=== PATIENT | female | born 1980 | race Caucasian/White ===

== ENCOUNTER 2018-06-25 07:19 | Day surgery (SDC) | payer BC ==
[~2018-06-25 07:19] MED LIST: Dexamethasone 4 MG/ML 5 ML MDV ONE; Lactated Ringers 1,000 ML IV SCH; Lidocaine 0.5% 50 ML SDV ONE; Lidocaine 1%/Sod Bicarbonate in NS 8.4% 1 ML Syringe IDERM PRN; Midazolam 1 MG/ML 2 ML SDV ONE; Ondansetron 4 MG/2 ML SDV ONE; Propofol 200 MG/20 ML SDV ONE; Sodium Bicarbonate 8.4% 50 MEQ/50 ML SDV ONE; Sodium Chloride 0.9% 10 ML Syringe FLUSH PRN; fentaNYL 100 MCG/2 ML SDV ONE
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
[2018-06-25] MEDS ORDERED: Bupivacaine 0.25%/EPINEPHrine 1:200,000 30 ML SDV ONE (08:49)
[2018-06-25] MEDS ORDERED: Bupivacaine 0.25% 10 ML SDV ONE (08:49)
[2018-06-25] MEDS ORDERED: Clindamycin Phosphate 900 MG/6 ML SDV ONE (09:00)
[2018-06-25] MEDS ORDERED: Sodium Chloride 0.9% 100 ML ONE (09:12)
--- NOTE | 2018-06-25 09:22 | PCM48HPAN ---
Post Anesthesia Note - EVALUATION WITHIN 48HRS OF ANESTHETIC Vital Signs in Normal Range: Yes Patient Participated in Evaluation: Yes Respiratory Function Stable: Yes Airway Patent: Yes Cardiovascular Function Stable: Yes Hydration Status Stable: Yes Pain Control Satisfactory: Yes Nausea and Vomiting Control Satisfactory: Yes Mental Status Recovered: Yes Pulse Rate: 63 SaO2: 95 Resp Rate: 17 Temperature: 36.6 C Blood Pressure: 121/67
--- NOTE | 2018-07-07 17:32 | OR ---
DATE OF OPERATION: 06/25/2018 SURGEON: Devyn Hayes MD PREOPERATIVE DIAGNOSIS: Status post open reduction and internal fixation of intraarticular left index finger bony mallet. POSTOPERATIVE DIAGNOSIS: Status post open reduction and internal fixation of intraarticular left index finger bony mallet. OPERATION PERFORMED: Removal of superficial buried pin x1, [id number]. IC DESIGN MANAGER: nursing assistant: Wendy Troy. INDICATIONS: This is a pleasant female who presents with status post open reduction and internal fixation of bony mallet. After discussing the risks, benefits, and alternatives as well as conservative as well as surgical treatment, the patient verbalized understanding and wished to proceed with surgery. DESCRIPTION OF PROCEDURE: The patient was brought to the operating room. Underwent a [place] blockade. Left upper extremity was prepped and draped in a standard orthopedic fashion. Surgical pause was performed identifying the appropriate patient and appropriate extremity to be operated upon. Preoperative antibiotics were given. A small juana was made over the dorsal aspect of her previous incision. Sharp dissection was carried down through skin and subcutaneous tissue. Hemostasis was obtained. Identified the pin, carefully dissected around the pin and packed this out atraumatically. Skin was irrigated thoroughly. Skin was closed with nylon suture. She was placed in a soft dressing and brought to recovery in satisfactory condition. ANESTHESIA: ESTIMATED BLOOD LOSS: MMODAL /[id number]
== END 2018-06-25 10:01 | disposition home or self-care (01) ==
LOC: JD.SDS 07:19
PROVIDERS: ATTEND Orthopaedic Surgery
DX: S62.631D Displaced fracture of distal phalanx of left index finger, subsequent encounter for fracture with routine healing (principal); E03.9 Hypothyroidism, unspecified; F41.9 Anxiety disorder, unspecified; Z79.899 Other long term (current) drug therapy; J30.9 Allergic rhinitis, unspecified; Z88.1 Allergy status to other antibiotic agents; Z88.8 Allergy status to other drugs, medicaments and biological substances; X58.XXXD Exposure to other specified factors, subsequent encounter
CPT/HCPCS: 26320; 81025; J1100; J2001; J2250; J2405; J2704; J3010; J3490; J7030; J7120; 01830